=== PATIENT | female | born 1995 ===

== ENCOUNTER 2024-03-23 22:38 | Emergency (ER) | payer OTHER, SELFPAY ==
[2024-03-23 22:45] VITALS: BP 107/65; PULSE 68; RESP 16; TEMP 36.2; O2SAT 99; BMI 27.8
[2024-03-23 23:44] VITALS: BP 120/74; PULSE 74; O2SAT 100
[2024-03-24] VITALS (8 sets, daily range): BP systolic 102–112; BP diastolic 61–69; PULSE 64–72; RESP 18; O2SAT 97–100
[2024-03-24 00:08] LABS: Alanine Aminotransferase 77 IU/L (<35); Albumin 4.7 g/dL (3.5-5.0); Albumin Globulin Ratio 1.3 (1.0-2.8); Alkaline Phosphatase 86 U/L (38-126); Aspartate Aminotransferase 42 IU/L (14-36); BUN Creatinine Ratio 22.2 (6-22); Bilirubin Total 0.4 mg/dL (0.2-1.3); Blood Urea Nitrogen 12 mg/dL (7-17); Calcium 9.1 mg/dL (8.4-10.2); Carbon Dioxide 25 mmol/L (22-32); Chloride 99 mmol/L (98-107); Estimated Glomerular Filt Rate > 60 mL/min (>60); Globulin 3.7 g/dL (1.7-4.1); Glucose 148 mg/dL (70-100); HEMOLYSIS < 15 (0-50); Lipase 30 U/L (23-300); Potassium 4.6 mmol/L (3.4-5.1); Sodium 136 mmol/L (137-145); Total Protein 8.4 g/dL (6.3-8.2)
[2024-03-24 00:11] LABS: Influenza A - CEPHEID Flu A NEGATIVE (NEGATIVE); Influenza B - CEPHEID Flu B NEGATIVE (NEGATIVE); Respiratory Syncytial Virus Negative (Negative)
[2024-03-24 00:12] LABS: COVID-19 CEPHEID 4-PLEX PCR Negative (Negative)
--- NOTE | 2024-03-24 00:12 | ED_ITS ---
HPI - Nausea/Vomiting/Diarrhea General Chief complaint: Nausea/Vomiting/Diarrhea Stated complaint: Vomiting, Flu-Like Symptoms, Weakness Time Seen by Provider: 03/23/24 23:42 Source: patient and family Mode of arrival: Wheelchair History of Present Illness HPI Narrative: 28-year-old female presents with chills, body aches, several episodes of nausea and vomiting, generalized weakness. Symptoms began while she was grocery shopping around 1:00 p.m. and have been constant since onset. No known sick contacts. No medications taken prior to arrival. Related Data Previous Rx's Medication Instructions Recorded ondansetron 4 mg disintegrating 4 mg PO Q8H PRN nausea and 03/24/24 tablet vomiting #30 tabs Allergies Allergy/AdvReac Type Severity Reaction Status Date / Time cephalexin [From Keflex] AdvReac Verified 03/23/24 22:45 Patient History Social History Smoking Status: Never smoker Smoking Status: Never smoker Exam Initial Vital Signs Initial Vital Signs: Vital Signs Temperature 97.1 F L 03/23/24 22:45 Pulse Rate 68 03/23/24 22:45 Respiratory Rate 16 03/23/24 22:45 Blood Pressure 107/65 03/23/24 22:45 Pulse Oximetry 99 03/23/24 22:45 Oxygen Delivery Method Room Air 03/23/24 22:45 Const: Awake, alert, no acute distress, nontoxic appearing Cardiac: regular rate, regular rhythm RESP: unlabored, clear bilaterally, no wheezing GI: Soft, nontender, nondistended, no rebound, no guarding Skin: Warm, Dry, intact, no rashes Neuro: AO x3, CN II-XII grossly intact, moves all extremities Course Orders Ordered: Discontinued Medications Ondansetron HCl (Ondansetron 4 Mg/2 Ml Inj) 4 mg IV NOW PRN PRN Reason: Nausea And Vomiting Last Admin: 03/24/24 00:21 Dose: 4 mg Documented By: Ondansetron HCl (Ondansetron 4 Mg Odt) 4 mg PO NOW PRN PRN Reason: Nausea And Vomiting Ondansetron HCl (Ondansetron 4 Mg Odt Prepack) 1 bottle MISC DIRECTED ONE Stop: 03/24/24 02:23 Last Admin: 03/24/24 02:32 Dose: 1 bottle Documented By: HNG Vital Signs Vital signs: Vital Signs - 8 hr 03/23/24 22:45 03/23/24 23:44 03/23/24 23:44 Temperature 97.1 F L Pulse Rate 68 74 Respiratory Rate 16 Blood Pressure 107/65 120/74 Pulse Oximetry 99 100 Oxygen Delivery Method Room Air Room Air 03/24/24 00:00 03/24/24 00:01 03/24/24 00:01 Temperature Pulse Rate 69 69 Respiratory Rate Blood Pressure 108/62 Pulse Oximetry 100 100 Oxygen Delivery Method 03/24/24 00:30 03/24/24 00:30 03/24/24 01:00 Temperature Pulse Rate 72 Respiratory Rate Blood Pressure 112/69 105/63 Pulse Oximetry 100 Oxygen Delivery Method Room Air 03/24/24 01:00 Temperature Pulse Rate 64 Respiratory Rate 18 Blood Pressure Pulse Oximetry 97 Oxygen Delivery Method MDM - Nausea/Vomiting/Diarrhea Differential Diagnosis Differential diagnosis: Likely traveler's diarrhea, food poisoning and gastroenteritis Lab Data 03/23/24 23:50 03/23/24 23:50 Labs: Lab Results 03/23/24 03/23/24 03/24/24 Range/Units 22:50 23:50 01:18 WBC 8.1 (4.5-11.0) X10^3/uL RBC 4.57 (4.0-5.2) X10^6/uL Hgb 13.0 (12.0-16.0) g/dL Hct 38.4 (36-46) % MCV 84.0 (80-100) fL MCH 28.5 (26-34) PG MCHC 33.9 (30-36) % RDW 14.3 (11.6-14.8) % Plt Count 281 (150-400) X10^3/uL Neut % (Auto) 89.6 H (50-75) % Lymph % (Auto) 7.7 L (25-40) % Newberry % (Auto) 2.7 L (3-14) % Eos % (Auto) 0.0 L (2-4) % Baso % (Auto) 0.0 (0-2) % Neut # (Auto) 7200 H (8320-9515) /uL Lymph # (Auto) 600 L (7229-5824) /uL Newberry # (Auto) 200 (0-900) /uL Eos # (Auto) 0 (0-450) /uL Baso # (Auto) 0 (0-100) /uL Sodium 136 L (137-145) mmol/L Potassium 4.6 (3.4-5.1) mmol/L Chloride 99 (98-107) mmol/L Carbon Dioxide 25 (22-32) mmol/L BUN 12 (7-17) mg/dL Creatinine 0.54 (0.52-1.04) mg/dL Estimated GFR > 60 (>60) mL/min BUN/Creatinine Ratio 22.2 H (6-22) Glucose 148 H (70-100) mg/dL Calcium 9.1 (8.4-10.2) mg/dL Total Bilirubin 0.4 (0.2-1.3) mg/dL AST 42 H (14-36) IU/L ALT 77 H (<35) IU/L Alkaline Phosphatase 86 (38-126) U/L Total Protein 8.4 H (6.3-8.2) g/dL Albumin 4.7 (3.5-5.0) g/dL Globulin 3.7 (1.7-4.1) g/dL Albumin/Globulin Ratio 1.3 (1.0-2.8) Lipase 30 (23-300) U/L Urine RBC >100/hpf H (0-5/HPF) Urine WBC 1-5/hpf (0-5/HPF) Ur Squamous Epith Cells 0-1 /hpf (0-5/HPF) Urine Bacteria Few (2-10) H (None) Urine Mucus 2+ H (Negative) Ur Culture Indicated? Specimen cultured Vol Urine Centrifuged 10ml (spun) SARS-CoV-2 (PCR) Negative (Negative) Influenza A (RT-PCR) Flu a negative (NEGATIVE) Influenza B (RT-PCR) Flu b negative (NEGATIVE) RSV (PCR) Negative (Negative) Point of Care Testing Test Results Negative Urine Dip Bedside Urine Glucose Negative Bedside Urine Bilirubin - Negative Bedside Urine Ketone ++ 40 Urine Specific Antonito 1.02 Bedside Urine Occult Blood +++ Bedside Urine pH 6 Bedside Urine Protein + 30 Bedside Urine Urobilinogen - Negative Bedside Urine Nitrite - Negative Bedside Urine Leukocytes +/- 15 Esterase ECG Data Interpretation: Normal sinus rhythm at 68 beats per minute. Normal MS. No ST T wave changes MDM Narrative Medical decision making narrative: Several hours of nausea and vomiting. Abdomen soft, no reproducible tenderness to palpation. Mucous membranes moist. Patient wonders if she could be dehydrated, a stated that it would be unlikely with only several hours of symptoms. Laboratory work reviewed, electrolytes within normal limits. Glucose 148, creatinine 0.54, GFR greater than 60. Patient received Zofran and subsequently able to tolerate p.o. fluids. EKG normal sinus rhythm without concerning findings. Zofran sent to pharmacy of choice. Prepack given prior to discharge. Discharge Plan Departure Patient Disposition: Home Clinical Impression: Gastroenteritis Instructions: DI for Vomiting -- Adult Activity Restrictions/Additional Instructions: Your laboratory work today did not show any electrolyte abnormalities. Use the Zofran prescribed for nausea and vomiting. Make sure you stay hydrated by drinking plenty of fluids. You may eventually notice some diarrhea, as long as you stay hydrated this will resolve as well. Prescriptions: New ondansetron 4 mg tablet,disintegrating 4 mg PO Q8H PRN (Reason: nausea and vomiting) Qty: 30 0RF Stand Alone Forms: Patient Portal/API/Survey
--- NOTE | 2024-03-24 00:13 | EKG_ITS ---
[address] [address] Test Date: 2024-03-24 Pat Name: Monserrat Villegas Department: ER Room: Gender: Female Newspaper Columnist: Jaylyn Segovia : 1995 Requested By: Order Number: [id number] Reading MD: Nolan Gutierrez Measurements Intervals [place] Rate: 68 P: 74 MD: 168 QRS: 58 QRSD: 74 T: 36 QT: 408 QTc: 433 Interpretive Statements Normal sinus rhythm Low voltage QRS Septal infarct , age undetermined Electronically Signed On 03-28-2024 23:42:34 PST by Nolan Gutierrez
[2024-03-24 00:16] LABS: Add Manual Diff / Slide Review NO; Basophils Absolute Auto 0 /uL (0-100); Eosinophils Absolute Auto 0 /uL (0-450); Hematocrit 38.4 % (36-46); Lymphocytes Absolute Auto 600 /uL (1100-4500); Lymphocytes Percent Auto 7.7 % (25-40); Mean Corpuscular HGB Conc 33.9 % (30-36); Mean Corpuscular Hemoglobin 28.5 PG (26-34); Monocytes Absolute Auto 200 /uL (0-900); Monocytes Percent Auto 2.7 % (3-14); Neutrophils Absolute Auto 7200 /uL (1500-7000); Neutrophils Percent Auto 89.6 % (50-75); Platelet Count 281 X10^3/uL (150-400); Red Blood Cell Count 4.57 X10^6/uL (4.0-5.2); Red Cell Distribution Width 14.3 % (11.6-14.8); White Blood Cell Count 8.1 X10^3/uL (4.5-11.0)
[2024-03-24] MEDS: ONDANSETRON 4 MG/2 ML INJ IV (00:21)
[2024-03-24 01:54] LABS: Bacteria Urine Few (2-10); Mucus Urine 2+ (Negative); RBC Urine >100/HPF (0-5/HPF); Squamous Epithelial Cell Urine 0-1 /HPF (0-5/HPF); Urine Volume 10mL (spun); WBC Urine 1-5/HPF (0-5/HPF)
[2024-03-24 01:55] LABS: Culture Indicated Urine Specimen Cultured
[2024-03-24] MEDS: ONDANSETRON 4 MG ODT PREPACK 1 BOTTLE MISC (02:32)
== END 2024-03-24 02:39 | disposition home or self-care (01) ==
PROVIDERS: Emergency Provider Emergency Medicine
DX: K52.9 Noninfective gastroenteritis and colitis, unspecified (principal); R53.1 Weakness
CPT/HCPCS: 0241U; 36415; 80053; 81003; 81015; 81025; 83690; 85025; 87077; 87086; 87147; 93005; 96374; 99284; J2405